=== PATIENT | female | born 1980 | race Two or more races ===

== ENCOUNTER 2019-12-26 12:00 | Inpatient (IN) | payer OTHER ==
[~2019-12-26] VITALS: Ht 160 cm; Wt 3.2 kg
[~2019-12-26 12:00] MED LIST: DOCUSATE SODIU100 MG PO; INTEGRA PLUS C1 EACH PO; KETO10TA2 PO; OXYC1TAB9 PO; PRENATAL + DHA1 EAC1 PO; PROTONIX20 MG PO; SINGULAIR 10MG10 MG PO; ZYRTEC10 M3 PO
[2019-12-26] MEDS ORDERED: ADULT ASPIRIN81 MG PO (14:17)
[2019-12-26] MEDS ORDERED: [UNRECOGNIZED DRUG - OTHER] PO (14:17)
[2019-12-26] MEDS ORDERED: SYNTH PO ×2 (14:19→14:23)
[2019-12-26] MEDS ORDERED: LEVOTHYROXINE25 MCG PO (14:21)
[2019-12-26] MEDS ORDERED: LEVOTHYROXINE25 MCG (14:23)
[2020-01-03] MEDS ORDERED: PRENATAL TABLE1 EACH PO (10:23)
[2020-01-03] MEDS ORDERED: ZYRTEC10 M3 PO (10:23)
[2020-01-03] MEDS ORDERED: SINGULAIR4 M1 PO (10:23)
== END 2020-01-06 13:06 | disposition home or self-care (01) | DRG 788 ==
LOC: ADM 12:00 → EDSTATUS 12:00 → OB/GYN 01-03 08:15 → O/R 01-03 09:40 → OB/GYN 01-03 12:00 → SURG-SUITE 01-03 14:54
PROVIDERS: ADMIT Obstetrics & Gynecology Maternal & Fetal Medicine
PROC: 4A1HXCZ Monitoring of Products of Conception, Cardiac Rate, External Approach (ICD-10-PCS; 2020-01-03)
PROC: 10D00Z1 Extraction of Products of Conception, Low, Open Approach (ICD-10-PCS; principal; 2020-01-03 08:15)
DX: O82 Encounter for cesarean delivery without indication (principal); Z3A.39 39 weeks gestation of pregnancy; Z37.0 Single live birth

== ENCOUNTER 2021-03-20 15:26 | Outpatient (CLI) | payer OTHER ==
[~2021-03-20 15:26] MED LIST changes: +ADULT ASPIRIN81 MG PO; +LEVOTHYROXINE25 MCG; +LEVOTHYROXINE25 MCG PO; +PRENATAL TABLE1 EACH PO; +SINGULAIR4 M1 PO; +SYNTH PO; +[UNRECOGNIZED DRUG - OTHER] PO
== END 2021-03-20 15:30 | disposition home or self-care (01) ==
LOC: LAB 15:26
PROVIDERS: ATTEND Family Medicine Adult Medicine
DX: R05 Cough (principal); Z03.818 Encounter for observation for suspected exposure to other biological agents ruled out